=== PATIENT | male | born 1945 | race Caucasian/White ===

== ENCOUNTER 2020-12-12 17:13 | Observation (INO) ==
[2020-12-12 17:57] LABS: Bilirubin,Urine Negative (Negative); Blood,Urine Negative (Negative); Clarity,Urine Clear (Clear); Color,Urine Yellow (Yellow); Glucose,Urine (UA) Normal (Normal); Ketones,Urine Negative (Negative); Leukocyte Esterase,Urine Negative (Negative); Nitrite,Urine Negative (Negative); Protein,Urine Trace mg/dL (Neg-Trace); Specific Gravity,Urine 1.019 (1.010-1.025); Urobilinogen,Urine Normal (Normal)
[2020-12-12 18:13] LABS: Amphetamine Screen,Urine Negative ng/mL (Cutoff=1000); Barbiturate Screen,Urine Negative ng/mL (Cutoff=200); Benzodiazepines Screen,Urine Negative ng/mL (Cutoff=200); Cannabinoid Screen,Urine Negative ng/mL (Cutoff = 50); Cocaine Screen,Urine Negative ng/mL (Cutoff= 300); Opiate Screen,Urine Negative ng/mL (Cutoff=300); Phencyclidine Screen,Urine Negative ng/mL (Cutoff=25)
[2020-12-12 18:14] LABS: Basophils % 0.4 %; Eosinophils # 0.2 K/mcL (0.0-0.6); Eosinophils % 2.5 %; Hematocrit 41.6 % (37.5-50.1); Hemoglobin 14.6 g/dL (12.9-16.9); Immature Granulocytes % 0.4 % (0-4); Immature Platelets 5.3 % (1.1-6.1); Lymphocytes # 1.1 K/mcL (0.6-4.6); Lymphocytes % 15.7 %; Mean Corpuscular HGB Conc 35.1 g/dL (31.6-35.5); Mean Corpuscular Hemoglobin 32.2 pg (28.0-33.3); Mean Corpuscular Volume 91.6 fL (83.0-100.0); Mean Platelet Volume 10.8 fL (9.4-12.4); Monocytes # 0.6 K/mcL (0.0-1.3); Monocytes % 8.1 %; Neutrophils # 5.2 K/mcL (1.6-8.9); Platelet Count 130 K/mcL (140-400); Red Blood Count 4.54 M/mcL (4.19-5.50); Red Cell Distribution Width 12.8 % (11.5-14.5); Segmented Neutrophils % 72.9 %; White Blood Count 7.1 K/mcL (4.3-11.1)
[2020-12-12 18:35] LABS: Alanine Aminotransferase 12 Units/L (7-52); Albumin/Globulin Ratio 1.5 (1.1-2.2); Alkaline Phosphatase 101 Units/L (34-104); Aspartate Amino Transferase 21 Units/L (13-39); BUN/Creatinine Ratio 8 (6-26); Bilirubin,Direct 0.1 mg/dL (0.0-0.2); Bilirubin,Indirect 0.6 mg/dL (0.0-1.0); Bilirubin,Total 0.7 mg/dL (0.3-1.0); Blood Urea Nitrogen 10 mg/dL (8-23); Calcium 8.9 mg/dL (8.6-10.3); Carbon Dioxide 24 mEq/L (23-29); Chloride 105 mEq/L (98-107); Ethanol < 10 mg/dL (Less than 10); Globulin 2.7 g/dL (2.4-3.5); Glucose 93 mg/dL (70-105); Osmolality,Calculated 283 (280-300); Sodium 137 mEq/L (136-145); Total Protein 6.7 g/dL (6.4-8.9); Troponin I < 0.03 ng/mL (< 0.04); eGFR For African Americans > 60 (> 60); eGFR For Non-African Americans 54 (> 60)
[2020-12-12 18:41] LABS: Platelet Estimate Normal (Normal)
[2020-12-12 19:17] LABS: VBG HCO3 25 mEq/L (21-27); VBG PCO2 41 mmHg (41-51); VBG PO2 45 mmHg (25-50)
[2020-12-12] MEDS ORDERED: Acetaminophen 325 MG TABLET PO PRN (21:06)
[2020-12-12] MEDS ORDERED: Ondansetron 4 MG/2 ML VIAL IVP PRN (21:06)
[2020-12-12] MEDS ORDERED: Naloxone 0.4 MG/ML INJ IVP PRN (21:06)
[2020-12-12] MEDS ORDERED: Melatonin 3 MG TABLET PO PRN (21:06)
[2020-12-13 05:35] LABS: BUN/Creatinine Ratio 9 (6-26); Blood Urea Nitrogen 11 mg/dL (8-23); Calcium 8.8 mg/dL (8.6-10.3); Carbon Dioxide 28 mEq/L (23-29); Chloride 104 mEq/L (98-107); Glucose 89 mg/dL (70-105); Osmolality,Calculated 281 (280-300); Potassium 4.3 mEq/L (3.5-5.1); Sodium 136 mEq/L (136-145); eGFR For African Americans > 60 (> 60); eGFR For Non-African Americans 54 (> 60)
[2020-12-13] MEDS ORDERED: Gadolinium Contrast Agent (WT Based) IV PRN (11:14)
[2020-12-13] MEDS: amLODIPine 5 MG TABLET PO SCH (14:27)
[2020-12-13] MEDS ORDERED: Haloperidol Lactate 5 MG/ML VIAL IM ONE (21:41)
[2020-12-14] MEDS: *HR* Enoxaparin 40 MG/0.4 ML SYRINGE SQ SCH (05:55)
[2020-12-14 06:38] LABS: Folate > 22.3 ng/mL (3.0-16.0); Vitamin B12 258 pg/mL (250-1100)
[2020-12-14] MEDS: amLODIPine 5 MG TABLET PO SCH (07:57)
[2020-12-14] MEDS: Thiamine (B-1) 100 MG TABLET PO SCH ×2 (14:14→19:45)
[2020-12-14] MEDS: Cyanocobalamin (B-12) 1,000 MCG/ML VIAL IM SCH (14:14)
[2020-12-15] MEDS: *HR* Enoxaparin 40 MG/0.4 ML SYRINGE SQ SCH (05:08)
[2020-12-15] MEDS: Cyanocobalamin (B-12) 1,000 MCG/ML VIAL IM SCH (09:34)
[2020-12-15] MEDS: amLODIPine 5 MG TABLET PO SCH (09:34)
[2020-12-15] MEDS: Thiamine (B-1) 100 MG TABLET PO SCH ×3 (09:34→19:36)
[2020-12-16] MEDS: *HR* Enoxaparin 40 MG/0.4 ML SYRINGE SQ SCH (05:06)
[2020-12-16] MEDS: Thiamine (B-1) 100 MG TABLET PO SCH ×3 (08:36→21:18)
[2020-12-16] MEDS: amLODIPine 5 MG TABLET PO SCH (08:36)
[2020-12-16] MEDS: Cyanocobalamin (B-12) 1,000 MCG/ML VIAL IM SCH (08:36)
[2020-12-17] MEDS: *HR* Enoxaparin 40 MG/0.4 ML SYRINGE SQ SCH (05:29)
[2020-12-17] MEDS: Cyanocobalamin (B-12) 1,000 MCG/ML VIAL IM SCH (08:03)
[2020-12-17] MEDS: Thiamine (B-1) 100 MG TABLET PO SCH ×3 (08:03→20:09)
[2020-12-17] MEDS: amLODIPine 5 MG TABLET PO SCH (08:03)
[2020-12-18] MEDS ORDERED: Haloperidol Lactate 5 MG/ML VIAL IM ONE (04:46)
[2020-12-18] MEDS: *HR* Enoxaparin 40 MG/0.4 ML SYRINGE SQ SCH (05:02)
[2020-12-18] MEDS: amLODIPine 5 MG TABLET PO SCH (12:17)
[2020-12-18] MEDS: Thiamine (B-1) 100 MG TABLET PO SCH ×3 (12:17→20:18)
[2020-12-18] MEDS: Cyanocobalamin (B-12) 1,000 MCG/ML VIAL IM SCH (12:17)
[2020-12-18] MEDS: QUEtiapine Fumarate 25 MG TABLET PO PRN (20:18)
[2020-12-19] MEDS: *HR* Enoxaparin 40 MG/0.4 ML SYRINGE SQ SCH (05:16)
[2020-12-19] MEDS: Thiamine (B-1) 100 MG TABLET PO SCH ×3 (09:22→19:34)
[2020-12-19] MEDS: amLODIPine 5 MG TABLET PO SCH (09:22)
[2020-12-19] MEDS: Cyanocobalamin (B-12) 1,000 MCG/ML VIAL IM SCH (09:23)
[2020-12-19] MEDS: QUEtiapine Fumarate 25 MG TABLET PO PRN (19:35)
[2020-12-20] MEDS: *HR* Enoxaparin 40 MG/0.4 ML SYRINGE SQ SCH (05:11)
[2020-12-20] MEDS: Cyanocobalamin (B-12) 1,000 MCG/ML VIAL IM SCH (08:24)
[2020-12-20] MEDS: Thiamine (B-1) 100 MG TABLET PO SCH ×2 (08:24→16:42)
[2020-12-20] MEDS: amLODIPine 5 MG TABLET PO SCH (08:24)
[2020-12-20 10:29] VITALS: BP 114/69
== END 2020-12-20 17:22 ==
LOC: 3BNU 17:13 → EMEROOARM 17:13 → SUATTDRO 20:15 → 3BNU 21:08
PROVIDERS: ADMIT Internal Medicine; ATTEND Nurse Practitioner